=== PATIENT | female | born 1955 | race Caucasian/White ===

== ENCOUNTER 2017-04-08 08:49 | Emergency (ER) | payer OTHER ==
[~2017-04-08] VITALS: Ht 160 cm; Wt 90.7 kg
[~2017-04-08 08:49] MED LIST: CATAFLAM50 MG PO; ORPH100T PO; TRAMADOL HCL-AP1 TAB PO
[2017-04-08] MEDS ORDERED: KETO10TA2 PO (12:44)
== END 2017-04-08 13:28 | disposition home or self-care (01) ==
LOC: ER 08:49
DX: R10.32 Left lower quadrant pain (principal)

== ENCOUNTER → 2017-04-13 | Emergency (ER) | payer OTHER ==
[~2017-04-13] VITALS: Ht 160 cm; Wt 88.9 kg
[~2017-04-13] MED LIST changes: +KETO10TA2 PO
== END | disposition home or self-care (01) ==
LOC: ER 09:39
DX: N20.0 Calculus of kidney (principal); K76.0 Fatty (change of) liver, not elsewhere classified

== ENCOUNTER 2018-04-26 07:18 | Day surgery (SDC) | payer OTHER | END 2018-04-26 15:00 | disposition home or self-care (01) | LOC: CIR.AMB 07:18 | DX: K63.5 Polyp of colon (principal); K64.8 Other hemorrhoids ==

== ENCOUNTER 2018-04-26 12:32 | Outpatient (CLI) | payer OTHER | END 2018-04-26 17:00 | disposition home or self-care (01) | LOC: TOM 12:32 | DX: K62.0 Anal polyp (principal); K65.2 Spontaneous bacterial peritonitis; Z12.11 Encounter for screening for malignant neoplasm of colon; Z12.12 Encounter for screening for malignant neoplasm of rectum ==

== ENCOUNTER 2018-12-25 10:52 | Emergency (ER) | payer OTHER ==
[~2018-12-25] VITALS: Ht 160 cm; Wt 90.7 kg
== END 2018-12-25 18:53 | disposition home or self-care (01) ==
LOC: ER 10:52
DX: N20.0 Calculus of kidney (principal)

== ENCOUNTER 2019-12-17 09:44 | Emergency (ER) | payer OTHER ==
[~2019-12-17] VITALS: Ht 160 cm; Wt 86.2 kg
[2019-12-17] MEDS ORDERED: FORTAMET500 MG PO (09:52)
[2019-12-17] MEDS ORDERED: COZAAR25 MG PO (09:53)
[2019-12-17] MEDS ORDERED: KETO10TA2 PO (12:00)
== END 2019-12-17 12:05 | disposition home or self-care (01) ==
LOC: ER 09:44
DX: M54.5 Low back pain (principal); G89.11 Acute pain due to trauma

== ENCOUNTER 2021-05-14 10:25 | Emergency (ER) | payer OTHER ==
[~2021-05-14] VITALS: Ht 160 cm; Wt 86.2 kg
[~2021-05-14 10:25] MED LIST changes: +COZAAR25 MG PO; +FORTAMET500 MG PO
== END 2021-05-14 16:07 | disposition home or self-care (01) ==
LOC: ER 10:25
DX: R10.84 Generalized abdominal pain (principal); Z86.79 Personal history of other diseases of the circulatory system; Z86.39 Personal history of other endocrine, nutritional and metabolic disease; Z88.2 Allergy status to sulfonamides

== ENCOUNTER 2021-05-29 10:38 | Outpatient (CLI) | payer OTHER | END 2021-05-29 10:39 | disposition home or self-care (01) | LOC: NUCLEAR 10:38 | PROVIDERS: ATTEND Obstetrics & Gynecology Maternal & Fetal Medicine | DX: M81.0 Age-related osteoporosis without current pathological fracture (principal) ==

== ENCOUNTER 2023-02-28 09:14 | Emergency (ER) | payer OTHER ==
[~2023-02-28] VITALS: Ht 160 cm; Wt 83.9 kg
[2023-02-28 10:46] LABS: PH,URINE 5.5 (5.0-8.0); URINE APPEARANCE Clear; URINE BILIRRUBIN Negative (NEGATIVE); URINE BLOOD Moderate; URINE COLOR Yellow; URINE GLUCOSE Negative (NEGATIVE); URINE LEUKOCYTE Negative; URINE NITRATE Negative; URINE PROTEIN Negative (NEGATIVE)
[2023-02-28 10:48] LABS: HEMATOCRIT 41.8 % (36.0-45.00); HEMOGLOBIN 14.3 g/dL (12.0-15.00); MEAN CELL VOLUME 89.3 fL (80.00-100.00); MEAN CORPUSCULAR HEMOGLOBIN 30.6 pg (27.00-32.0); MEAN CORPUSCULAR HGB CONC 34.3 g/dl (32.0-36.0); PLATELET COUNT 184 K/uL (150-450); RED BLOOD COUNT 4.68 M/uL (4.00-6.00); RED CELL DISTRIBUTION WIDTH 13.2 % (11.5-14.5)
[2023-02-28 10:51] LABS: URINE BACTERIA 109.5 uL (0.0-1933); URINE EPITHELIAL CELLS 14.8 uL (0.0-38.8); URINE RBC 158.2 uL (0.0-20.8); URINE WBC 6.3 uL (0.0-23.2)
[2023-02-28 11:24] LABS: CALCIUM 9.2 mg/dL (8.5-10.1); CREATININE SERUM 0.76 mg/dL (0.55-1.02); GFR 76.14; POTASSIUM 4.62 mEq/L (3.5-5.1)
== END 2023-02-28 15:46 | disposition home or self-care (01) ==
LOC: ER 09:14
PROVIDERS: Emergency Medicine
DX: N20.0 Calculus of kidney (principal); E11.9 Type 2 diabetes mellitus without complications; Z79.84 Long term (current) use of oral hypoglycemic drugs; I10 Essential (primary) hypertension; Z88.2 Allergy status to sulfonamides; Z88.8 Allergy status to other drugs, medicaments and biological substances